=== PATIENT | female | born 1935 | race Caucasian/White ===

== ENCOUNTER 2017-09-16 14:51 | Emergency (ER) | payer MEDICARE, OTHER ==
[~2017-09-16] VITALS: Wt 57.9 kg
[~2017-09-16 14:51] MED LIST: AMLO-147 PO; ASPI81TA3 PO; AZEL6DRO2 BOTH EYES; BENA40TA41 PO; CARV3.1260 PO; CLON-379 PO; CLOP75TA27 PO; DICY10CA60 PO; DOCU-159 PO; EZET10TA3 PO; FENO48TA PO; GLIM1TAB2 PO; ISOS30TA5 PO; LEVO75TA5 PO; LORA0.5T PO; MECL12.5 PO; NITR0.4T32 SL; OMEP20CA16 PO; RANO500T2 PO; TIMO10DR7 BOTH EYES
[2017-09-16] MEDS ORDERED: NITROGLYCERIN 2% 1 GM OINT PKT TD STA (15:12)
--- NOTE | 2017-09-16 16:03 | RADRPT ---
PROCEDURE: XR Chest. CLINICAL INDICATION: Chest pain. TECHNIQUE: Single frontal view. COMPARISON: None. FINDINGS: There is a benign calcified granuloma in the left upper lobe. Calcified left mediastinal lymph nodes are noted. The lungs are otherwise clear. The heart size is normal. There is no pleural effusion. There is no pneumothorax. IMPRESSION: 1. Previous granulomatous disease. 2. Otherwise unremarkable chest radiograph. RPTAT: QQ .Taco Nagel MD, MD Date Time Electronically viewed and signed by .Taco Nagel MD, MD on 09/16/2017 16:03 .R/
[2017-09-16] MEDS ORDERED: ONDANSETRON 4 MG INJ IV PRN (17:00)
[2017-09-16] MEDS ORDERED: ACETAMINOPHEN 325 MG TAB PO PRN (17:00)
--- NOTE | 2017-09-16 17:24 | ERD ---
ER Documentation Chief Complaint Chief Complaint CHEST PAIN X 3 DAYS HPI This is a very pleasant 82-year-old female who presents to the emergency room complaining of chest pain. 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 Her blood pressure is also elevated. The patient describes pressure-like chest pain that is been intermittent for 3 days, nonexertional, nonproductive. She denies any pleuritic pain fevers or chills or migratory pain. The patient did note associated diaphoresis most recently. Only 2 out of 10 pain currently. ROS All systems reviewed and are negative except as per history of present illness. Medications Home Meds Active Scripts Aspirin (Aspirin) 81 Mg Chew, 81 MG PO DAILY for 30 Days, TAB Prov:PRANAV SHINLANA 12/27/15 Reported Medications Meclizine Hcl* (Meclizine Hcl*) 12.5 Mg Tablet, 12.5 MG PO Q8H Y for DIZZINESS, TAB 12/23/15 Azelastine Hcl* (Azelastine Hcl*) 0.05%-6 Ml Opht Drops, 1 DROP BOTH EYES BID, # 1 EA 12/23/15 Fenofibrate Nanocrystallized* (Tricor*) 48 Mg Tablet, 48 MG PO DAILY, TAB 12/23/15 Timolol Maleate* (Timoptic*) 0.5%- 5ml Opht, 1 DROP BOTH EYES DAILY, #1 EA 12/23/15 Dicyclomine Hcl* (Bentyl*) 10 Mg Capsule, 10 MG PO TID Y for PAIN AND/OR INFLAMMATION, CAP 12/23/15 Amlodipine Besylate* (Amlodipine Besylate*) 10 Mg Tablet, 10 MG PO DAILY, #30 TAB 12/23/15 Benazepril Hcl* (Benazepril Hcl*) 40 Mg Tablet, 40 MG PO DAILY, #30 TAB 12/23/15 Isosorbide Mononitrate* (Isosorbide Mononitrate*) 30 Mg Tab.er.24h, 30 MG PO DAILY, TAB 12/23/15 Ranolazine* (Ranexa*) 500 Mg Tab.sr.12h, 500 MG PO Q12, TAB 12/23/15 Omeprazole* (Omeprazole*) 20 Mg Capsule.dr, 20 MG PO DAILY, #30 CAP 2/11/16 Nitroglycerin* (Nitroglycerin* SL) 0.4 Mg Tab.subl, 0.4 MG SL Q5MIN Y for CHEST PAIN, BOTTLE 12/23/15 Lorazepam* (Lorazepam*) 0.5 Mg Tablet, 0.5 MG PO BID Y for ANXIETY, TAB 12/23/15 Levothyroxine Sodium* (Levothyroxine Sodium*) 75 Mcg Tablet, 75 MCG PO BEFORE BREAKFAST, #30 TAB 12/23/15 Ezetimibe* (Zetia*) 10 Mg Tablet, 10 MG PO DAILY, TAB 12/23/15 Docusate Sodium* (Docusate Sodium*) 100 Mg Capsule, 100 MG PO BID, #60 CAP 12/23/15 Clopidogrel Bisulfate (Clopidogrel) 75 Mg Tablet, 75 MG PO DAILY, #30 TAB 12/23/15 Carvedilol* (Carvedilol*) 3.125 Mg Tablet, 3.125 MG PO BID, #60 TAB 12/23/15 Clonidine Hcl* (Clonidine Hcl*) 0.1 Mg Tab, 0.1 MG PO QID Y for ELEVATED BLOOD PRESSURE, TAB 12/23/15 Glimepiride* (Glimepiride*) 1 Mg Tablet, 1 MG PO DAILY, TAB 12/23/15 Allergies Allergies: Coded Allergies: Penicillins (Verified Allergy, Severe, RASH, 01/05/12) celecoxib (Verified Allergy, Severe, RASH, 01/05/12) azithromycin (Verified Allergy, Unknown, 12/24/15) (ZITHROMICIN) benzalkonium chloride (Unverified Allergy, Unknown, 08/17/15) travoprost (Unverified Allergy, Unknown, 08/17/15) PMhx/Soc History of Surgery: Yes (cs,hysterectomy,spine) Anesthesia Reaction: No Hx Neurological Disorder: No Hx Respiratory Disorders: No Hx Cardiac Disorders: Yes ([id number]) Hx Psychiatric Problems: No Hx Alcohol Use: No Hx Substance Use: No Hx Tobacco Use: No Smoking Status: Never smoker FmHx Family History: coronary disease, No diabetes Physical Exam Vitals Vital Signs Date Time Temp Pulse Resp B/P Pulse Ox O2 Delivery O2 Flow Rate FiO2 09/16/17 16:00 54 15 138/61 100 Room Air 09/16/17 15:35 Nasal Cannula 2 09/16/17 14:56 98.0 59 18 182/78 98 Physical Exam General: Well developed, well nourished, no acute distress Head: Normocephalic, atraumatic. Eyes: Pupils equally reactive, EOM intact ENT: Moist mucous membranes Neck: Supple, no lymphadenopathy Respiratory: Lungs clear bilaterally, no distress Cardiovascular: RRR, no murmurs, rubs, or gallops Abdominal: Soft, non-tender, non-distended, no peritoneal signs : Deferred MSK: No edema, no unilateral swelling, 5/5 strength for no pulse deficits Neurologic: Alert and oriented, moving all extremities, normal speech, no focal weakness, no cerebellar signs Skin: No rash Psych: Normal mood Result Diagram: 09/16/17 1515 09/16/17 1515 Results 24 hrs Laboratory Tests Test 09/16/17 15:15 White Blood Count 4.810^3/ul Red Blood Count 4.4410^6/ul Hemoglobin 12.8g/dl Hematocrit 38.6% Mean Corpuscular Volume 86.9fl Mean Corpuscular Hemoglobin 28.8pg Mean Corpuscular Hemoglobin Concent 33.2g/dl Red Cell Distribution Width 12.0% Platelet Count 26666^3/UL Mean Platelet Volume 9.7fl Neutrophils % 54.8% Lymphocytes % 30.9% Monocytes % 12.2% Eosinophils % 1.3% Basophils % 0.6% Nucleated Red Blood Cells % 0.0/100WBC Neutrophils # 2.610^3/ul Lymphocytes # 1.510^3/ul Monocytes # 0.610^3/ul Eosinophils # 0.110^3/ul Basophils # 0.010^3/ul Nucleated Red Blood Cells # 0.010^3/ul Sodium Level 138mmol/L Potassium Level 4.5mmol/L Chloride Level 98mmol/L Carbon Dioxide Level 28mmol/L Anion Gap 17 Blood Urea Nitrogen 18mg/dl Creatinine 1.00mg/dl Glucose Level 117mg/dl Calcium Level 10.5mg/dl Troponin I < 0.012ng/ml Current Medications Medications (Trade) Dose Ordered Sig/Marlin Route PRN Reason Start Time Stop Time Status Last Admin Dose Admin Nitroglycerin (Nitroglycerin 2% Oint) 1 inch ONCE STAT TD 09/16/17 15:12 09/16/17 15:14 DC 09/16/17 15:19 Ondansetron HCl (Zofran Inj) 4 mg ER BRIDGE PRN IV NAUSEA AND/OR VOMITING 09/16/17 17:00 09/17/17 16:59 Acetaminophen (Tylenol Tab) 650 mg ER BRIDGE PRN PO MILD PAIN/FEVER 09/16/17 17:00 09/17/17 16:59 Procedures/MDM EKG, MONITORS, & DIAGNOSTIC IMAGING: EKG: I reviewed and interpreted a 12-lead EKG. Rhythm: Normal sinus rhythm Ectopy: None Intervals: No abnormalities ST segments: No elevations or depressions T waves: T-wave inversions in the inferior and lateral leads, inferior leads are new compared to old bilateral and anterior leads are old Repeat EKG: EKG: I reviewed and interpreted a 12-lead EKG. Rhythm: Normal sinus rhythm Ectopy: None Intervals: No abnormalities ST segments: No elevations or depressions T waves: T-wave inversions as documented above are unchanged Chest x-ray: I reviewed and interpreted a 1 view of the chest Mediastinum: No enlargement Cardiac silhouette: No cardiomegaly Airspace: Clear lung christy bilaterally without evidence of pneumothorax Bones: No evidence of fracture LAB INTERPRETATION: Negative troponin MEDICAL DECISION MAKING: The patient's history, physical exam and clinical presentation is concerning for possible cardiogenic etiology and acute coronary syndrome. Based on the patient's clinical exam and history and risk factors, I have a much lower clinical concern for pulmonary embolism, acute aortic dissection, pneumothorax, pneumonia, cardiac tamponade HEART Score: 5 MACE Rate: Upwards of 65% Shared Decision Making: We had a conversation regarding risk stratification, MACE rate, and the risks, benefits, alternatives of disposition planning options. Disposition planning: Strong recommendation for hospitalization given EKG changes ER COURSE: Patient was significantly hypertensive and improved with nitroglycerin. No indication for IV medications at this time. The patient took Plavix prior to arrival and has not tolerated aspirin in the past. Her chest pain is now 1 out of 10 and improving to 0 out of 10 during ER course. The patient requires inpatient hospitalization for further management of her chest pain rule out acute coronary syndrome. I kept the patient and/or family informed of laboratory and diagnostic imaging results throughout the emergency room course. DISPOSITION PLAN: Telemetry admission for management of chest pain to rule out acute coronary syndrome, serial enzymes, risk stratification and consideration of provocative testing CONSULTATION: Accepting care team and consultations: I discussed the current laboratory data, diagnostic imaging and emergency care provided. Admitting team: Dr. Meek Admitting team indication: Insurance directed Departure Diagnosis: Primary Impression: Chest pain Chest pain type: unspecified Qualified Code: R07.9 - Chest pain, unspecified type Additional Impression: Hypertensive emergency Condition: Stable THOMAS BAPTISTE MD Sep 16, 2017 17:24
--- NOTE | 2017-09-16 17:42 | HP ---
Date/Time of Note Date/Time of Note DATE: 09/16/17 TIME: 17:34 Assessment/Plan VTE Prophylaxis VTE Prophylaxis Intervention: LMWH, other Lines/Catheters IV Catheter Type (from Nrs): Peripheral IV Assessment/Plan Chief Complaint/Hosp Course 82 yo female with hypertension and anxiety who presents with BP elevation and anxiety - Ok for patient to be discharge from ED now [facility] follow up in clinic - Clinically this is not an ACS, patient without chest symptoms or angina to my history, troponin is negative - I advised her to take her medications as prescribed and to stop worryign about taking her ffingersticks or her blood pressure - Her BP is very labile according to her emotional state. I personally saw her BP go from 120/60 when calm at rest to 190/100 when she became tearful and stressed Problems: HPI/ROS Admit Date/Time Admit Date/Time Hx of Present Illness 82 yo female with h/o hypertension, anxiety/insomnia who presents with thompson positive ROS including headache, body aches, SOB, CP. Difficult to understand what the patient's primary reason for presentation to the hosptial today is, but she went to [facility] where BP was found to be 190s/70s so sent to ED. She describes persisetnt stress about her blood pressure. Has with her a meticulous log of daily BP going back years. Generally diasotlics are low from 40s to 60s and systolics range from 110s to 170s. She perseverates tremdneously on her BP and her blood sugar, though sugars generally 100-130 and A1C only 6.3. She feels like her BP elevation means she is "dying". I explained to her that BP is labile throughout the day and it is veyr natural for it to increase when you are nervous, in pain etc. She seem to take more BP medications when BP elevates incluiding clonidine and extra dose of benazapril. When i told her that she is a very heatlhy person and she doens't need to worry so much about her BP/sugars she was incerdibily releived, started crying, saying i was an "milena" and that she feels so "relieved." She denies any chest pain to me at this time. She udnerwent coronary angiography last years showing mild luminal irregularites but no obstructive diseae EKG at that time was notable for large precordial TWI which are still present on today's exam Note that per my history, chest pain is not the reason for her presentation today PMH/Family/Social Past Medical History Medical History: diabetes, hypertension Past Surgical History Past Surgical Hx: no surgical history Family History Significant Family History: no pertinent family hx Social History Alcohol Use: none Smoking Status: Never smoker Drug Use: none Exam/Review of Systems Vital Signs Vitals Vital Signs Date Time Temp Pulse Resp B/P Pulse Ox O2 Delivery O2 Flow Rate FiO2 09/16/17 16:00 54 15 138/61 100 Room Air 09/16/17 15:35 2 09/16/17 14:56 98.0 Exam Constitutional: alert, oriented, well developed Psych: nl mood/affect, no complaints Head: atraumatic, normocephalic Eyes: EOMI, PERRL, nl conjunctiva, nl lids, nl sclera ENMT: nl external ears & nose, nl lips & teeth, nl nasal mucosa & septum Neck: non-tender, supple Respiratory: clear to auscultation, normal air movement Cardiovascular: nl pulses, regular rate and rhythm Gastrointestinal: nl liver, spleen, non-tender, soft Musculoskeletal: nl extremities to inspection Extremities: normal pulses 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
--- NOTE | 2017-09-16 17:42 | HP ---
Date/Time of Note Date/Time of Note DATE: 09/16/17 TIME: 17:34 Assessment/Plan VTE Prophylaxis VTE Prophylaxis Intervention: LMWH, other Lines/Catheters IV Catheter Type (from Nrs): Peripheral IV Assessment/Plan Chief Complaint/Hosp Course 82 yo female with hypertension and anxiety who presents with BP elevation and anxiety - Ok for patient to be discharge from ED now [facility] follow up in clinic - Clinically this is not an ACS, patient without chest symptoms or angina to my history, troponin is negative - I advised her to take her medications as prescribed and to stop worryign about taking her ffingersticks or her blood pressure - Her BP is very labile according to her emotional state. I personally saw her BP go from 120/60 when calm at rest to 190/100 when she became tearful and stressed Problems: HPI/ROS Admit Date/Time Admit Date/Time Hx of Present Illness 82 yo female with h/o hypertension, anxiety/insomnia who presents with thompson positive ROS including headache, body aches, SOB, CP. Difficult to understand what the patient's primary reason for presentation to the hosptial today is, but she went to [facility] where BP was found to be 190s/70s so sent to ED. She describes persisetnt stress about her blood pressure. Has with her a meticulous log of daily BP going back years. Generally diasotlics are low from 40s to 60s and systolics range from 110s to 170s. She perseverates tremdneously on her BP and her blood sugar, though sugars generally 100-130 and A1C only 6.3. She feels like her BP elevation means she is "dying". I explained to her that BP is labile throughout the day and it is veyr natural for it to increase when you are nervous, in pain etc. She seem to take more BP medications when BP elevates incluiding clonidine and extra dose of benazapril. When i told her that she is a very heatlhy person and she doens't need to worry so much about her BP/sugars she was incerdibily releived, started crying, saying i was an "milena" and that she feels so "relieved." She denies any chest pain to me at this time. She udnerwent coronary angiography last years showing mild luminal irregularites but no obstructive diseae EKG at that time was notable for large precordial TWI which are still present on today's exam Note that per my history, chest pain is not the reason for her presentation today PMH/Family/Social Past Medical History Medical History: diabetes, hypertension Past Surgical History Past Surgical Hx: no surgical history Family History Significant Family History: no pertinent family hx Social History Alcohol Use: none Smoking Status: Never smoker Drug Use: none Exam/Review of Systems Vital Signs Vitals Vital Signs Date Time Temp Pulse Resp B/P Pulse Ox O2 Delivery O2 Flow Rate FiO2 09/16/17 16:00 54 15 138/61 100 Room Air 09/16/17 15:35 2 09/16/17 14:56 98.0 Exam Constitutional: alert, oriented, well developed Psych: nl mood/affect, no complaints Head: atraumatic, normocephalic Eyes: EOMI, PERRL, nl conjunctiva, nl lids, nl sclera ENMT: nl external ears & nose, nl lips & teeth, nl nasal mucosa & septum Neck: non-tender, supple Respiratory: clear to auscultation, normal air movement Cardiovascular: nl pulses, regular rate and rhythm Gastrointestinal: nl liver, spleen, non-tender, soft Musculoskeletal: nl extremities to inspection Extremities: normal pulses 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
[2017-09-16 18:55] VITALS: BP 127/61; PULSE 60; RESP 15; TEMP 98
== END 2017-09-16 19:01 | disposition home or self-care (01) ==
LOC: E/R 14:51
DX: I16.1 Hypertensive emergency (principal); I10 Essential (primary) hypertension; Z79.01 Long term (current) use of anticoagulants; Z79.82 Long term (current) use of aspirin
CPT/HCPCS: 36415; 71010; 80048; 84484; 85025; 93005

== ENCOUNTER 2018-02-19 23:44 | Inpatient (IN) | END 2018-02-22 19:30 | disposition home or self-care (01) | DRG 379 ==

== ENCOUNTER 2018-10-04 13:51 | Observation (INO) | END 2018-10-05 19:00 | disposition home or self-care (01) ==

== ENCOUNTER 2019-02-04 10:27 | Observation (INO) | payer MEDICARE, OTHER ==
[~2019-02-04] VITALS: Ht 157.5 cm; Wt 70.0 kg
[~2019-02-04 10:27] MED LIST changes: -AMLO-147 PO; -ASPI81TA3 PO; +ATOR20TA38 PO; -AZEL6DRO2 BOTH EYES; -BENA40TA41 PO; +BENA40TA56 PO; +BISO5TAB21 PO; -CARV3.1260 PO; +CHOL500010 PO; -DICY10CA60 PO; +DILT120C65 PO; -EZET10TA3 PO; -FENO48TA PO; +HYDR-3672 PO; -ISOS30TA5 PO; +LEVO5TAB PO; -LORA0.5T PO; -MECL12.5 PO; -OMEP20CA16 PO; +RANI150T5 PO; -RANO500T2 PO; +SIME80TA60 PO; -TIMO10DR7 BOTH EYES; +TML25OP5 BOTH EYES
[2019-02-04] MEDS ORDERED: NITROGLYCERIN 2% 1 GM OINT PKT TD STA (10:35)
[2019-02-04] MEDS ORDERED: NITROGLYCERIN (SL) 0.4 MG TAB SL PRN ×2 (11:00→18:30)
[2019-02-04] MEDS ORDERED: CLOP75TA19 PO (11:43)
[2019-02-04] MEDS ORDERED: LEVO75TA5 PO (11:44)
[2019-02-04] MEDS ORDERED: DILT240C79 PO (11:45)
[2019-02-04] MEDS ORDERED: BISO5TAB21 PO (11:46)
[2019-02-04] MEDS ORDERED: HYDR100T25 PO (11:47)
[2019-02-04] MEDS ORDERED: CLON1PAT2 TD (11:49)
[2019-02-04] MEDS ORDERED: DOCU-144 PO (11:50)
[2019-02-04] MEDS ORDERED: ATOR20TA38 PO (11:50)
[2019-02-04] MEDS ORDERED: CHOL200056 PO (11:51)
[2019-02-04] MEDS ORDERED: MCN2C47 VAGINAL (11:55)
[2019-02-04] MEDS ORDERED: LISI40TA3 PO (11:55)
[2019-02-04] MEDS ORDERED: SIME125T PO (11:55)
[2019-02-04] MEDS ORDERED: RANO500T2 PO (11:56)
[2019-02-04] MEDS ORDERED: OMEP40CA6 PO (11:57)
[2019-02-04] MEDS ORDERED: TRAZ-111 PO (11:57)
[2019-02-04] MEDS ORDERED: MICO100S4 VG (11:58)
[2019-02-04] MEDS ORDERED: GLIM1TAB2 PO (11:59)
[2019-02-04] MEDS ORDERED: CLOT30CR24 TOP (12:00)
[2019-02-04] MEDS ORDERED: ACETAMINOPHEN 325 MG TAB PO PRN ×2 (13:00→18:30)
[2019-02-04] MEDS ORDERED: ONDANSETRON 4 MG INJ IV PRN ×2 (13:00→18:30)
--- NOTE | 2019-02-04 13:43 | ERD ---
ER Documentation Chief Complaint Chief Complaint pressure like chest pain HPI Patient is an 83-year-old female with coronary disease, hypertension, and diabetes who presents with chest pain. The patient was brought in by ambulance. The chest pain started a few days ago. It left-sided. She was given aspirin and nitro by paramedics. The pain comes and goes. She tried her own nitroglycerin at home. Upon review of old medical records the patient has multiple visits to the ER with admissions. She does have a primary doctor Dr. 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 ROS All systems reviewed and are negative except as per history of present illness. Medications Home Meds Reported Medications Clotrimazole* (Clotrimazole* AF) 1% - 30 Gm Cream.gm., 1 APPLIC TOP BID, TUB 02/04/19 Glimepiride* (Glimepiride*) 1 Mg Tablet, 1 MG PO WITH BREAKFAST, TAB 02/04/19 Miconazole Nitrate (Miconazole 7) 100 Mg Supp.vag, 100 MG VG QHS, SUPP.VAG 02/04/19 Trazodone Hcl* (Trazodone Hcl*) 50 Mg Tablet, 50 MG PO QHS, #30 TAB 02/04/19 Omeprazole* (Omeprazole*) 40 Mg Capsule.dr, 40 MG PO DAILY, #30 CAP 02/04/19 Ranolazine* (Ranexa*) 500 Mg Tab.sr.12h, 500 MG PO DAILY, TAB 02/04/19 Lisinopril* (Lisinopril*) 40 Mg Tablet, 40 MG PO DAILY, #30 TAB 02/04/19 Miconazole Nitrate* (Miconazole*) 2% - 45 Gm Cr, 1 APPFUL VAGINAL HS, #1 TUB 02/04/19 Simethicone (Gas Relief) 125 Mg Tab.chew, 250 MG PO AFTER MEALS, TAB.CHEW 02/04/19 Cholecalciferol (Vitamin D3) (Vitamin D-3) 2,000 Unit Tablet, 2000 UNIT PO DAILY, TAB 02/04/19 Atorvastatin Calcium* (Atorvastatin Calcium*) 20 Mg Tablet, 20 MG PO QHS, #30 TAB 02/04/19 Docusate Sodium* (Colace*) 100 Mg Capsule, 100 MG PO BID, #60 CAP 02/04/19 Clonidine Patch (CLONIDINE PATCH) Unknown Strength Patch, 1 PATCH TD Q7D, #4 PATCH.WK 0.1MG/24HR 02/04/19 Hydralazine Hcl* (Hydralazine Hcl*) 100 Mg Tablet, 100 MG PO Q8, #90 TAB 02/04/19 Bisoprolol Fumarate* (Bisoprolol Fumarate*) 5 Mg Tablet, 5 MG PO BID, TAB 02/04/19 Diltiazem Hcl* (Cardizem CD*) 240 Mg Cap.sr.24h, 240 MG PO DAILY, #30 CAP 02/04/19 Levothyroxine Sodium* (Levothyroxine Sodium*) 75 Mcg Tablet, 75 MCG PO BEFORE BREAKFAST, #30 TAB 02/04/19 Clopidogrel Bisulfate* (Clopidogrel Bisulfate*) 75 Mg Tablet, 75 MG PO DAILY, #30 TAB 02/04/19 Discontinued Reported Medications Timolol Maleate* (Timoptic*) 0.25%-5ml Opht, 1 DROP BOTH EYES BID, #1 EA 10/04/18 Simethicone* (Mylicon*) 80 Mg Tab, 80 MG PO DAILY PRN for DISTENSION/GAS/BLOATING, TAB 10/04/18 Levocetirizine Dihydrochloride (LEVOCETIRIZINE DIHYDROCHLORIDE) 5 Mg Tablet, 5 MG PO DAILY, #30 TAB 10/04/18 Cholecalciferol (Vitamin D3) 5,000 Unit Tablet, 5000 UNIT PO DAILY, TAB 10/04/18 Atorvastatin Calcium* (Atorvastatin Calcium*) 20 Mg Tablet, 20 MG PO QHS, #30 TAB 10/04/18 Glimepiride* (Glimepiride*) 1 Mg Tablet, 1 MG PO WITH BREAKFAST, TAB 10/04/18 Levothyroxine Sodium* (Levothyroxine Sodium*) 75 Mcg Tablet, 75 MCG PO BEFORE BREAKFAST, #30 TAB 10/04/18 Clopidogrel Bisulfate (Clopidogrel) 75 Mg Tablet, 75 MG PO DAILY, #30 TAB 10/04/18 Docusate Sodium* (Docusate Sodium*) 100 Mg Capsule, 100 MG PO BID, #60 CAP 10/04/18 Ranitidine Hcl* (Ranitidine Hcl*) 150 Mg Tablet, 150 MG PO HS, #30 TAB 10/04/18 Bisoprolol Fumarate* (Bisoprolol Fumarate*) 5 Mg Tablet, 5 MG PO BID, TAB 10/04/18 Nitroglycerin* (Nitroglycerin* SL) 0.4 Mg Tab.subl, 0.4 MG SL Q5MIN PRN for CHEST PAIN, BOTTLE 10/04/18 Clonidine Hcl* (Clonidine Hcl*) 0.1 Mg Tab, 0.1 MG PO DAILY PRN for ELEVATED BLOOD PRESSURE, TAB 10/04/18 Hydralazine Hcl* (Hydralazine Hcl*) 50 Mg Tab, 50 MG PO Q6H, #60 TAB 10/04/18 Benazepril Hcl* (Benazepril Hcl*) 40 Mg Tablet, 40 MG PO DAILY, #30 TAB 10/04/18 Diltiazem Hcl* (Taztia XT*) 120 Mg Capsule.sa, 120 MG PO DAILY, #30 CAP 10/04/18 Allergies Allergies: Coded Allergies: Penicillins (Verified Allergy, Severe, RASH, 02/04/19) celecoxib (Verified Allergy, Severe, RASH, 02/04/19) azithromycin (Verified Allergy, Unknown, 02/04/19) (ZITHROMICIN) benzalkonium chloride (Unverified Allergy, Unknown, 02/04/19) travoprost (Unverified Allergy, Unknown, 02/04/19) PMhx/Soc History of Surgery: Yes (hysterectomy, C section, back Sx) Anesthesia Reaction: No Hx Neurological Disorder: No (headaches) Hx Respiratory Disorders: No Hx Cardiac Disorders: Yes (HTN, PR 1990) Hx Psychiatric Problems: No Hx Miscellaneous Medical Probl: No Hx Alcohol Use: No Hx Substance Use: No Hx Tobacco Use: No FmHx Family History: No coronary disease Physical Exam Vitals Vital Signs Date Temp Pulse Resp B/P (MAP) Pulse Ox O2 O2 Flow FiO2 Time Delivery Rate 02/04/19 59 155/65 11:09 (95) 02/04/19 Nasal 2 10:40 Cannula 02/04/19 98.0 52 12 195/63 18 10:30 (107) Physical Exam Const: No acute distress Head: Atraumatic Eyes: Normal Conjunctiva ENT: Normal External Ears, Nose and Mouth. Neck: Full range of motion. No meningismus. Resp: Clear to auscultation bilaterally Cardio: Regular rate and rhythm, no murmurs Abd: Soft, non tender, non distended. Normal bowel sounds Skin: No petechiae or rashes Back: No midline or flank tenderness Ext: No cyanosis, or edema Neur: Awake and alert Psych: Normal Mood and Affect Result Diagram: 02/04/19 1054 02/04/19 1054 Results 24 hrs Laboratory Tests Test 02/04/19 10:54 White Blood Count 4.5 10^3/ul Red Blood Count 3.67 10^6/ul Hemoglobin 11.0 g/dl Hematocrit 33.8 % Mean Corpuscular Volume 92.1 fl Mean Corpuscular Hemoglobin 30.0 pg Mean Corpuscular Hemoglobin Concent 32.5 g/dl Red Cell Distribution Width 13.4 % Platelet Count 205 10^3/UL Mean Platelet Volume 9.6 fl Immature Granulocytes % 0.400 % Neutrophils % 62.8 % Lymphocytes % 21.8 % Monocytes % 13.0 % Eosinophils % 1.6 % Basophils % 0.4 % Nucleated Red Blood Cells % 0.0 /100WBC Immature Granulocytes # 0.020 10^3/ul Neutrophils # 2.8 10^3/ul Lymphocytes # 1.0 10^3/ul Monocytes # 0.6 10^3/ul Eosinophils # 0.1 10^3/ul Basophils # 0.0 10^3/ul Nucleated Red Blood Cells # 0.0 10^3/ul Sodium Level 140 mmol/L Potassium Level 4.0 mmol/L Chloride Level 100 mmol/L Carbon Dioxide Level 29 mmol/L Anion Gap 11 Blood Urea Nitrogen 16 mg/dl Creatinine 0.70 mg/dl Est Glomerular Filtrat Rate mL/min mL/min Glucose Level 92 mg/dl Calcium Level 10.0 mg/dl Troponin I < 0.012 ng/ml Current Medications Medications Dose Sig/Marlin Start Time Status Last (Trade) Ordered Route PRN Stop Time Admin Dose Reason Admin 1 inch ONCE STAT 02/04/19 DC 02/04/19 Nitroglycerin TD 10:35 10:48 02/04/19 10:36 (Nitroglyceri n 2% Oint) 1 tab Q5M UP TO 3 02/04/19 02/04/19 Nitroglycerin DOSES PRN 11:00 10:48 SL .CHEST (Nitroglyceri PAIN n (Sl Tab) 0.4 Mg) Ondansetron 4 mg ER BRIDGE 02/04/19 HCl (Zofran PRN IV 13:00 Inj) NAUSEA/VOMITI 02/05/19 12:59 NG 650 mg ER BRIDGE 02/04/19 Acetaminophen PRN PO 13:00 (Tylenol .MILD PAIN 02/05/19 12:59 Tab) 1-3 OR TEMP Procedures/MDM EKG #1 read by me: Rate/Rhythm: Regular rate and rhythm at a normal rate Intervals: Normal Impression: Flipped T waves in the lateral leads concerning for ischemia EKG #2 read by me: Rate/Rhythm: Regular rate and rhythm at a normal rate Intervals: Normal Impression: Flipped T waves in the lateral leads concerning for ischemia Chest x-ray read by radiology. Patient is an 83-year-old female with multiple cardiac risk factors who presents with chest pain. I am concerned for potential acute coronary syndrome and the patient does have an abnormal EKG. Initial troponin is negative. The patient will be admitted to the panel team. The patient received aspirin and nitroglycerin. I doubt pneumonia, pneumothorax, pulmonary embolism, or aortic dissection. Departure Diagnosis: Primary Impression: Chest pain Chest pain type: unspecified Qualified Codes: R07.9 - Chest pain, unspecified Additional Impression: Anemia Anemia type: unspecified type Qualified Codes: D64.9 - Anemia, unspecified Condition: MYRIAM [place] MD Feb 04, 2019 13:43
[2019-02-04] MEDS ORDERED: ACETAMINOPHEN 325 MG TAB PO ONE (14:00)
[2019-02-04 14:40] VITALS: Ht 157.5 cm; Wt 70.0 kg
--- NOTE | 2019-02-04 16:59 | CONS ---
Assessment/Plan Assessment/Plan Hospital Course (Demo Recall) Chest pain Minimal epicardial coronary artery disease cardiac catheterization December 2015 Preserved left ventricular ejection fraction echocardiogram December 2015 Hypertension Diabetes -Patient with left-sided chest discomfort which is nonexertional has been off and on for years. She did undergo cardiac workup in 2016 with cardiac catheterization with minimal coronary artery disease. Symptoms have been controlled with antihypertensives and Ranexa. Patient states her Ranexa was recently stopped and her symptoms have worsened. I would restart her Ranexa. Check serial cardiac enzymes, echocardiogram. Consultation Date/Type/Reason Admit Date/Time Type of Consult Cardiology Reason for Consultation Chest pain Date/Time of Note DATE: 02/04/19 TIME: 16:55 Hx of Present Illness This is an 83-year-old female past medical history of hypertension, minimal coronary artery disease cardiac catheterization December 2015 who presents with left-sided chest pain. Patient has a hard time describing qualities of pain but she tells me is on the left side. It comes and goes throughout the day. Can happen while sitting can happen while ambulating. Exertion does not worsen or improve symptoms. Usually last from seconds to minutes. Symptoms have worsened since she recently stopped her Ranexa. Denies any dizziness or lightheadedness at the current time but does at times with standing up. She denies any shortness of breath currently. 12 point review of systems was performed with all pertinent positives and negatives mentioned above and all else is negative Past Medical History Medical History: diabetes, hypertension, hypothyroid Home Meds Reported Medications Clotrimazole* (Clotrimazole* AF) 1% - 30 Gm Cream.gm., 1 APPLIC TOP BID, TUB 02/04/19 Glimepiride* (Glimepiride*) 1 Mg Tablet, 1 MG PO WITH BREAKFAST, TAB 02/04/19 Miconazole Nitrate (Miconazole 7) 100 Mg Supp.vag, 100 MG VG QHS, SUPP.VAG 02/04/19 Trazodone Hcl* (Trazodone Hcl*) 50 Mg Tablet, 50 MG PO QHS, #30 TAB 02/04/19 Omeprazole* (Omeprazole*) 40 Mg Capsule.dr, 40 MG PO DAILY, #30 CAP 02/04/19 Ranolazine* (Ranexa*) 500 Mg Tab.sr.12h, 500 MG PO DAILY, TAB 02/04/19 Lisinopril* (Lisinopril*) 40 Mg Tablet, 40 MG PO DAILY, #30 TAB 02/04/19 Miconazole Nitrate* (Miconazole*) 2% - 45 Gm Cr, 1 APPFUL VAGINAL HS, #1 TUB 02/04/19 Simethicone (Gas Relief) 125 Mg Tab.chew, 250 MG PO AFTER MEALS, TAB.CHEW 02/04/19 Cholecalciferol (Vitamin D3) (Vitamin D-3) 2,000 Unit Tablet, 2000 UNIT PO DAILY, TAB 02/04/19 Atorvastatin Calcium* (Atorvastatin Calcium*) 20 Mg Tablet, 20 MG PO QHS, #30 TAB 02/04/19 Docusate Sodium* (Colace*) 100 Mg Capsule, 100 MG PO BID, #60 CAP 02/04/19 Clonidine Patch (CLONIDINE PATCH) Unknown Strength Patch, 1 PATCH TD Q7D, #4 PATCH.WK 0.1MG/24HR 02/04/19 Hydralazine Hcl* (Hydralazine Hcl*) 100 Mg Tablet, 100 MG PO Q8, #90 TAB 02/04/19 Bisoprolol Fumarate* (Bisoprolol Fumarate*) 5 Mg Tablet, 5 MG PO BID, TAB 02/04/19 Diltiazem Hcl* (Cardizem CD*) 240 Mg Cap.sr.24h, 240 MG PO DAILY, #30 CAP 02/04/19 Levothyroxine Sodium* (Levothyroxine Sodium*) 75 Mcg Tablet, 75 MCG PO BEFORE BREAKFAST, #30 TAB 02/04/19 Clopidogrel Bisulfate* (Clopidogrel Bisulfate*) 75 Mg Tablet, 75 MG PO DAILY, #30 TAB 02/04/19 Discontinued Reported Medications Timolol Maleate* (Timoptic*) 0.25%-5ml Opht, 1 DROP BOTH EYES BID, #1 EA 10/04/18 Simethicone* (Mylicon*) 80 Mg Tab, 80 MG PO DAILY PRN for DISTENSION/GAS/BLOATING, TAB 10/04/18 Levocetirizine Dihydrochloride (LEVOCETIRIZINE DIHYDROCHLORIDE) 5 Mg Tablet, 5 MG PO DAILY, #30 TAB 10/04/18 Cholecalciferol (Vitamin D3) 5,000 Unit Tablet, 5000 UNIT PO DAILY, TAB 10/04/18 Atorvastatin Calcium* (Atorvastatin Calcium*) 20 Mg Tablet, 20 MG PO QHS, #30 TAB 10/04/18 Glimepiride* (Glimepiride*) 1 Mg Tablet, 1 MG PO WITH BREAKFAST, TAB 10/04/18 Levothyroxine Sodium* (Levothyroxine Sodium*) 75 Mcg Tablet, 75 MCG PO BEFORE BREAKFAST, #30 TAB 10/04/18 Clopidogrel Bisulfate (Clopidogrel) 75 Mg Tablet, 75 MG PO DAILY, #30 TAB 10/04/18 Docusate Sodium* (Docusate Sodium*) 100 Mg Capsule, 100 MG PO BID, #60 CAP 10/04/18 Ranitidine Hcl* (Ranitidine Hcl*) 150 Mg Tablet, 150 MG PO HS, #30 TAB 10/04/18 Bisoprolol Fumarate* (Bisoprolol Fumarate*) 5 Mg Tablet, 5 MG PO BID, TAB 10/04/18 Nitroglycerin* (Nitroglycerin* SL) 0.4 Mg Tab.subl, 0.4 MG SL Q5MIN PRN for CHES T PAIN, BOTTLE 10/04/18 Clonidine Hcl* (Clonidine Hcl*) 0.1 Mg Tab, 0.1 MG PO DAILY PRN for ELEVATED BLOOD PRESSURE, TAB 10/04/18 Hydralazine Hcl* (Hydralazine Hcl*) 50 Mg Tab, 50 MG PO Q6H, #60 TAB 10/04/18 Benazepril Hcl* (Benazepril Hcl*) 40 Mg Tablet, 40 MG PO DAILY, #30 TAB 10/04/18 Diltiazem Hcl* (Taztia XT*) 120 Mg Capsule.sa, 120 MG PO DAILY, #30 CAP 10/04/18 Medications Current Medications Nitroglycerin (Nitroglycerin (Sl Tab) 0.4 Mg) 1 tab Q5M UP TO 3 DOSES PRN SL .CHEST PAIN Last administered on 02/04/19at 10:48; Admin Dose 1 TAB; Start 02/04/19 at 11:00 Ondansetron HCl (Zofran Inj) 4 mg ER BRIDGE PRN IV NAUSEA/VOMITING; Start 02/04/19 at 13:00; Stop 02/05/19 at 12:59 Acetaminophen (Tylenol Tab) 650 mg ER BRIDGE PRN PO .MILD PAIN 1-3 OR TEMP; Start 02/04/19 at 13:00; Stop 02/05/19 at 12:59 Allergies: Coded Allergies: Penicillins (Verified Allergy, Severe, RASH, 02/04/19) celecoxib (Verified Allergy, Severe, RASH, 02/04/19) azithromycin (Verified Allergy, Unknown, 02/04/19) (ZITHROMICIN) benzalkonium chloride (Unverified Allergy, Unknown, 02/04/19) travoprost (Unverified Allergy, Unknown, 02/04/19) Past Surgical History Past Surgical Hx: endoscopy Family History Significant Family History: no pertinent family hx Social History Smoking Status: Never smoker Other Social History , Facility Exam/Review of Systems Vital Signs Vitals Vital Signs Date Temp Pulse Resp B/P (MAP) Pulse Ox O2 O2 Flow FiO2 Time Delivery Rate 02/04/19 58 16 137/59 100 Nasal 15:30 (85) Cannula 02/04/19 2 10:40 02/04/19 98.0 10:30 Exam Constitutional: alert, oriented (No apparent distress) Head: normocephalic Respiratory: clear to auscultation, normal air movement Cardiovascular: regular rate and rhythm (S1-S2 heard) Gastrointestinal: soft, non-tender, bowel sounds Extremities: other (No significant edema) Labs Result Diagram: 02/04/19 1054 02/04/19 1054 Results 24hrs Laboratory Tests Test 02/04/19 10:54 White Blood Count 4.5 L Red Blood Count 3.67 L Hemoglobin 11.0 L Hematocrit 33.8 L Mean Corpuscular Volume 92.1 Mean Corpuscular Hemoglobin 30.0 Mean Corpuscular Hemoglobin Concent 32.5 Red Cell Distribution Width 13.4 Platelet Count 205 Mean Platelet Volume 9.6 Immature Granulocytes % 0.400 Neutrophils % 62.8 Lymphocytes % 21.8 Monocytes % 13.0 H Eosinophils % 1.6 Basophils % 0.4 Nucleated Red Blood Cells % 0.0 Immature Granulocytes # 0.020 Neutrophils # 2.8 Lymphocytes # 1.0 Monocytes # 0.6 Eosinophils # 0.1 Basophils # 0.0 Nucleated Red Blood Cells # 0.0 Sodium Level 140 Potassium Level 4.0 Chloride Level 100 Carbon Dioxide Level 29 Anion Gap 11 Blood Urea Nitrogen 16 Creatinine 0.70 Est Glomerular Filtrat Rate mL/min Glucose Level 92 Calcium Level 10.0 Troponin I < 0.012 Imaging Imaging ECG sinus bradycardia, QRS 86 ms, left ventricular hypertrophy, nonspecific T wave abnormalities Medications Medications Current Medications Nitroglycerin (Nitroglycerin (Sl Tab) 0.4 Mg) 1 tab Q5M UP TO 3 DOSES PRN SL .CHEST PAIN Last administered on 02/04/19at 10:48; Admin Dose 1 TAB; Start 02/04/19 at 11:00 Ondansetron HCl (Zofran Inj) 4 mg ER BRIDGE PRN IV NAUSEA/VOMITING; Start 02/04/19 at 13:00; Stop 02/05/19 at 12:59 Acetaminophen (Tylenol Tab) 650 mg ER BRIDGE PRN PO .MILD PAIN 1-3 OR TEMP; Start 02/04/19 at 13:00; Stop 02/05/19 at 12:59 Sachin Rosario DO Feb 04, 2019 16:59
[2019-02-04] MEDS ORDERED: RANOLAZINE (SR) 500 MG TAB PO SCH (17:00)
--- NOTE | 2019-02-04 17:16 | RADRPT ---
Echocardiogram Report Patient Name: KRISS BRUCEPatient ID: [id number] : [id number] (83y 11m)Study Date: 02/04/2019 4:36:43 PM Gender: FAccession #: [id number] Tech: CO Location: Ref.Physician: SACHIN ROSARIO Height(Cm): BSA: Weight(Kg): Quality: GoodAccount #: Procedures: Echocardiographic Report: Transthoracic echocardiogram with complete 2D, M-Mode, and doppler examination. Indications: Chest Pain, LVH. Measurements: 2D/M Mode Doppler Measurement Value Normal Range Measurement Value Normal Range LVIDd 2D 4.8 [ 3.8 - 5.2 ] cm XU Vmax 1.5 [ 2.0 - 4.0 ] cm2 LVIDs 2D 2.6 [ 2.2 - 3.5 ] cm XU VTI 1.6 [ 2.0 - 4.0 ] cm2 LVPWd 2D 1.2 [ 0.6 - 0.9 ] cm AV Mean Maxwell 1.5 [ 70.0 - 90.0 ] cm/sec IVSd 2D 1.0 [ 0.6 - 0.9 ] cm AV Mean PG 12.0 [ 2.0 - 4.0 ] mmHg IVS/LVPW 2D 0.8 ratio AV Peak Maxwell 2.7 [ 100.0 - 170.0 ] cm/sec AoR Diam 2D 2.3 [ 2.3 - 3.1 ] cm AV Peak PG 29.0 [ 2.0 - 9.0 ] mmHg LA/Ao 2D 2 ratio AV VTI 62.5 cm LA Dimen 2D 3.7 [ 2.7 - 3.8 ] cm LVOT Peak Maxwell 1.4 [ 70.0 - 110.0 ] cm/sec LVOT Area 2.8 cm2 LVOT Peak PG 8.0 [ 2.0 - 6.0 ] mmHg MV E Peak Maxwell 1.1 [ 60.0 - 130.0 ] cm/sec MV A Peak Maxwell 0.9 [ 100.0 - 120.0 ] cm/sec MV E/A 1.2 [ 0.8 - 1.5 ] ratio MV Decel Time 257 [ 104 - 258 ] msec Lat E` Maxwell 0.1 [ 10.0 - 15.0 ] cm/sec Med E` Maxwell 0.0 cm/sec MV E/A 1.2 [ 0.8 - 1.5 ] ratio Findings: Left Ventricle: Normal left ventricular systolic function. Normal left ventricular cavity size. Mild concentric left ventricular hypertrophy. Ejection fraction is visually estimated at 65 %. Abnormal Diastolic Function. Right Ventricle: Normal right ventricular size. Normal right ventricular systolic function. Left Atrium: The left atrium is normal in size. Right Atrium: The right atrium is normal in size. Mitral Valve: Mitral valve leaflets appear mildly thickened. Mild mitral annular calcification. Mild mitral valve regurgitation. Aortic Valve: Mild aortic stenosis. Mean PG 12.00 mmHg. Aortic cusps appear mildly calcified. Trace aortic valve regurgitation. Tricuspid Valve: Normal appearance and function of the tricuspid valve with trace physiologic regurgitation. Pulmonic Valve: Normal pulmonic valve appearance. There is trace pulmonic regurgitation. Pericardium: Normal pericardium with no significant pericardial effusion. Aorta: Normal aortic root. IVC: Normal size and normal respiratory collapse consistent with normal right atrial pressure. Conclusions: Normal left ventricular systolic function. Normal left ventricular cavity size. Mild concentric left ventricular hypertrophy. Ejection fraction is visually estimated at 65 %. Abnormal Diastolic Function. Normal right ventricular size. Normal right ventricular systolic function. The left atrium is normal in size. The right atrium is normal in size. Mild mitral valve regurgitation. Mild aortic stenosis. Trace aortic valve regurgitation. Normal pericardium with no significant pericardial effusion. Electronically Signed By: Sachin Rosario 2019-02-04 17:16:43 PDT
[2019-02-04] MEDS: RANOLAZINE (SR) 500 MG TAB PO SCH (18:19)
[2019-02-04] MEDS ORDERED: LORAZEPAM 0.5 MG TAB PO PRN (18:30)
--- NOTE | 2019-02-04 18:41 | HP ---
Date/Time of Note Date/Time of Note DATE: 02/04/19 TIME OF EVALUATION: 14:13 Assessment/Plan VTE Prophylaxis Pharmacological prophylaxis: heparin Lines/Catheters IV [facility] Saline Lock Assessment/Plan Hospital Course 83 yo F with recurrent L sided CP since her ranexa was stopped admitted and managed as follows : 1. CP r/o ACS 2. coronary disease status post stent placement in the past 3. hypertension 4. dhx-pxgsbzx-lwqcodybk diabetes 5. dyslipidemia 6. hypothyroidism, 7. GI bleed secondary to hemorrhoids and diverticulosis 8. Chronic anxiety PLAN: Telemetry admission, trend cardiac enzymes, 2d echo if none recently and cardiology consult oxygen and nitroglycerin therapy as needed. Daily aspirin if no allergy or bleeding risk. Get lipid profile, magnesium and TSH levels in am. resume home meds include ranexa for now titrate and adjust meds as indicated Further interventions per course Result Diagram: 02/04/19 1054 02/04/19 1054 Results 24hrs Laboratory Tests Test 02/04/19 10:54 02/04/19 17:08 White Blood Count 4.5 L Red Blood Count 3.67 L Hemoglobin 11.0 L Hematocrit 33.8 L Mean Corpuscular Volume 92.1 Mean Corpuscular Hemoglobin 30.0 Mean Corpuscular Hemoglobin Concent 32.5 Red Cell Distribution Width 13.4 Platelet Count 205 Mean Platelet Volume 9.6 Immature Granulocytes % 0.400 Neutrophils % 62.8 Lymphocytes % 21.8 Monocytes % 13.0 H Eosinophils % 1.6 Basophils % 0.4 Nucleated Red Blood Cells % 0.0 Immature Granulocytes # 0.020 Neutrophils # 2.8 Lymphocytes # 1.0 Monocytes # 0.6 Eosinophils # 0.1 Basophils # 0.0 Nucleated Red Blood Cells # 0.0 Sodium Level 140 Potassium Level 4.0 Chloride Level 100 Carbon Dioxide Level 29 Anion Gap 11 Blood Urea Nitrogen 16 Creatinine 0.70 Est Glomerular Filtrat Rate mL/min Glucose Level 92 Calcium Level 10.0 Troponin I < 0.012 < 0.012 Creatine Kinase 46 Creatine Kinase Index 1.3 Creatinine Kinase MB (Mass) 0.59 HPI/ROS Admit Date/Time Admit Date/Time Hx of Present Illness Patient is an 83-year-old female with a history of coronary disease status post stent placement in the past, hypertension, suq-btqzdah-erqzdrljj diabetes, dyslipidemia, hypothyroidism, GI bleed secondary to hemorrhoids and diverticulosis, anxiety. Patient presents with chest pain in the left chest and shoulder for the past 4 days. Pain is intermittent and is similar to pain she has had in the past. She states that her PCP just stopped her Ranexa because he was concerned it was interacting with her plavix. She cannot remember her last stress test. Her PCP is Dr Peterson. She denied SOB, fever, cough, abd pain, nausea or vomiting. Denies passing out episodes or extremity weakness. ROS 12 point review if systems was done and pertinent findings are as noted. PMH/Family/Social Past Medical History * coronary disease status post stent placement in the past, * angina * hypertension * jva-etyiaec-qoqtljiwn diabetes, * dyslipidemia, * hypothyroidism * GI bleed secondary to hemorrhoids and diverticulosis * anxiety . Medications Current Medications Nitroglycerin (Nitroglycerin (Sl Tab) 0.4 Mg) 1 tab Q5M UP TO 3 DOSES PRN SL .CHEST PAIN Last administered on 02/04/19at 10:48; Admin Dose 1 TAB; Start 02/04/19 at 11:00 Ondansetron HCl (Zofran Inj) 4 mg ER BRIDGE PRN IV NAUSEA/VOMITING; Start 02/04/19 at 13:00; Stop 02/05/19 at 12:59 Acetaminophen (Tylenol Tab) 650 mg ER BRIDGE PRN PO .MILD PAIN 1-3 OR TEMP; Start 02/04/19 at 13:00; Stop 02/05/19 at 12:59 Ranolazine (Ranexa) 500 mg DAILY PO ; Start 02/04/19 at 18:30 Coded Allergies: Penicillins (Verified Allergy, Severe, RASH, 02/04/19) celecoxib (Verified Allergy, Severe, RASH, 02/04/19) azithromycin (Verified Allergy, Unknown, 02/04/19) (ZITHROMICIN) benzalkonium chloride (Unverified Allergy, Unknown, 02/04/19) travoprost (Unverified Allergy, Unknown, 02/04/19) Past Surgical History Past Surgical Hx: endoscopy Family History Significant Family History: no pertinent family hx Social History Alcohol Use: none Smoking Status: Never smoker Drug Use: none Exam/Review of Systems Vital Signs Vitals Vital Signs Date Temp Pulse Resp B/P (MAP) Pulse Ox O2 O2 Flow FiO2 Time Delivery Rate 02/04/19 58 17 138/58 100 Nasal 17:30 (84) Cannula 02/04/19 2 10:40 02/04/19 98.0 10:30 Exam Exam General: A&O x3, answering questions appropriately, elderly, anxious HEENT: NC/ AT. PERRL. EOM intact Neck: supple CVS: S1, S2, RRR. no murmurs. no pain on chest wall palpation Lungs: CTA b/l. no wheezing or rhonchi Abd: soft, nontender, +BS Ext: moving all extremities skin: no rashes Additional Comments PROCEDURE: XR Chest. CLINICAL INDICATION: chest pain TECHNIQUE: Single frontal view of the chest was obtained COMPARISON: CR CHEST 12/23/2015 FINDINGS: The heart is normal in size. There is a small calcified lymph node in the AP window versus a small calcified granuloma. There is also a tiny left upper lobe calcified granuloma, unchanged. There is no pleural effusion or pneumothorax. RPTAT: AA IMPRESSION: Small left upper lobe calcified granuloma versus small calcified lymph node in the AP window. Tiny left upper lobe calcified granuloma. .Matt Cordero MD, MD Date Time Electronically viewed and signed by .Matt Cordero MD, on 02/04/2019 10:51 .S/ CC: MYRIAM HELMS MD [id number] I reviewed EKG Rate: Within normal limits Rhythm: sinus Note: No ST elevation or depressions noted concerning for acute ischemic event. ZEBOLATITO M. Feb 04, 2019 18:24
[2019-02-04] MEDS: INSULIN GLARGINE [LANTus] (100 UNITS/ML) SYG SC SCH (20:24)
[2019-02-04] MEDS: INSULIN ASPART [NOVOLOG] 3 ML PEN SC SCH (21:00)
[2019-02-04] MEDS: BISOPROLOL 5 MG TAB PO SCH (21:00)
[2019-02-04 21:05] VITALS: PULSE 69
[2019-02-04 21:20] VITALS: BP 171/74; PULSE 64; RESP 19
[2019-02-04] MEDS: DOCUSATE SODIUM 100 MG CAP PO SCH (21:36)
[2019-02-04] MEDS: ATORVASTATIN 20 MG TAB PO SCH (21:36)
[2019-02-04] MEDS: traZODone 50 MG TAB PO SCH (21:38)
[2019-02-04] MEDS: HEPARIN 5,000 UNIT/1 ML VIAL SC SCH (21:46)
[2019-02-05] VITALS (12 sets, daily range): BP systolic 102–185; BP diastolic 59–84; PULSE 49–70; RESP 18–20
[2019-02-05] MEDS: LEVOTHYROXINE 75 MCG TAB PO SCH (06:13)
[2019-02-05] MEDS: PANTOPRAZOLE (EC) 40 MG TAB PO SCH (06:13)
[2019-02-05] MEDS: INSULIN ASPART [NOVOLOG] 3 ML PEN SC SCH ×7 (07:43→20:39)
[2019-02-05] MEDS: CLOPIDOGREL 75 MG TAB PO SCH (08:06)
[2019-02-05] MEDS: RANOLAZINE (SR) 500 MG TAB PO SCH (08:07)
[2019-02-05] MEDS: CHOLECALCIFEROL 2,000 UNIT CAP PO SCH (08:07)
[2019-02-05] MEDS: DOCUSATE SODIUM 100 MG CAP PO SCH ×2 (08:07→20:38)
[2019-02-05] MEDS: HEPARIN 5,000 UNIT/1 ML VIAL SC SCH ×2 (08:24→20:45)
[2019-02-05] MEDS ORDERED: LISINOPRIL 20 MG TAB PO SCH (09:00)
[2019-02-05] MEDS ORDERED: DILTIAZEM (CD) 240 MG CAP PO SCH (09:00)
[2019-02-05] MEDS: BISOPROLOL 5 MG TAB PO SCH ×2 (10:26→20:38)
--- NOTE | 2019-02-05 13:54 | CONS ---
Assessment/Plan Assessment/Plan Hospital Course (Demo Recall) Chest pain-resolved Minimal epicardial coronary artery disease cardiac catheterization December 2015 Preserved left ventricular ejection fraction Hypertension, improved Diabetes -Chest pain is since resolved since restarting Ranexa and blood pressure control. Serial cardiac enzymes remain negative -Review of vitals, patient with heart rates in the 50s-60s, on both calcium channel finesse and beta-finesse. Would DC Cardizem at the current time -Adjust lisinopril to twice daily dosing -Blood pressure trend remains stable and tolerating current medications, DC planning Consultation Date/Type/Reason Admit Date/Time Feb 04, 2019 at 12:44 Initial Consult Date Type of Consult Cardiology Date/Time of Note DATE: 02/05/19 TIME: 13:52 24 HR Interval Summary Free Text/Dictation Feeling much better, denies any further chest pain. Denies headache or shortnes s of breath Exam/Review of Systems Vital Signs Vitals Vital Signs Date Temp Pulse Resp B/P (MAP) Pulse Ox O2 O2 Flow FiO2 Time Delivery Rate 02/05/19 53 12:01 02/05/19 98.1 20 123/59 97 Room Air 11:23 (80) 02/04/19 2.0 18:50 Intake and Output 02/04/19 02/04/19 02/05/19 1515:00 23:00 07:00 IntakeIntake Total 120 ml 220 ml BalanceBalance 120 ml 220 ml Exam Constitutional: alert, oriented (No apparent distress) Head: normocephalic Respiratory: other (Coarse breath sounds bilaterally, no wheezing) Cardiovascular: regular rate and rhythm (S1-S2 heard) Gastrointestinal: soft, non-tender, bowel sounds Extremities: other (No significant edema) Labs Result Diagram: 02/05/1962302/05/1924 Results 24hrs Laboratory Tests Test 02/04/19 17:08 02/04/19 20:21 02/04/19 23:42 02/05/19 06:24 Lactate 660 H Dehydrogenase Creatine Kinase 46 44 Creatine Kinase 1.3 1.4 Index Creatinine Kinase MB 0.59 0.60 (Mass) Troponin I < 0.012 0.013 Bedside Glucose 196 White Blood Count 3.5 #L Red Blood Count 3.42 L Hemoglobin 10.1 L Hematocrit 31.5 L Mean Corpuscular 92.1 Volume Mean Corpuscular 29.5 Hemoglobin Mean Corpuscular 32.1 Hemoglobin Concent Red Cell 13.6 Distribution Width Platelet Count 195 Mean Platelet Volume 9.9 Immature 0.000 L Granulocytes % Neutrophils % 61.5 Lymphocytes % 21.2 Monocytes % 13.3 H Eosinophils % 3.4 Basophils % 0.6 Nucleated Red Blood 0.0 Cells % Immature 0.000 Granulocytes # Neutrophils # 2.2 Lymphocytes # 0.8 Monocytes # 0.5 Eosinophils # 0.1 Basophils # 0.0 Nucleated Red Blood 0.0 Cells # Sodium Level 142 Potassium Level 4.1 Chloride Level 102 Carbon Dioxide Level 30 Anion Gap 10 Blood Urea Nitrogen 20 Creatinine 0.77 Est Glomerular Filtrat Rate mL/min Glucose Level 85 Hemoglobin A1c 5.9 Calcium Level 9.4 Magnesium Level 1.8 Test 02/05/19 07:42 02/05/19 11:35 Bedside Glucose 97 164 Medications Medications Current Medications Ranolazine (Ranexa) 500 mg DAILY PO Last administered on 02/05/19 08:07; Admin Dose 500 MG; Start 02/04/19 at 18:30 Lorazepam (Ativan) 0.5 mg Q8H PRN PO .ANXIETY Last administered on 02/05/19 08:09; Admin Dose 0.5 MG; Start 02/04/19 at 18:30 Ondansetron HCl (Zofran Inj) 4 mg Q6H PRN IV NAUSEA/VOMITING; Start 02/04/19 at 18:30 Nitroglycerin (Nitroglycerin (Sl Tab) 0.4 Mg) 1 tab Q5M PRN SL .CHEST PAIN; Start 02/04/19 at 18:30 Acetaminophen (Tylenol Tab) 650 mg Q6H PRN PO .PAIN 1-3 OR TEMP Last administered on 02/05/19 04:14; Admin Dose 650 MG; Start 02/04/19 at 18:30 Heparin Sodium (Porcine) (Heparin (5000 Units/1ml)) 5,000 unit Q12 SC Last administered on 02/05/19 08:24; Admin Dose 5,000 UNIT; Start 02/04/19 at 21:00 Atorvastatin Calcium (Lipitor) 20 mg QHS PO Last administered on 02/04/19at 21:36; Admin Dose 20 MG; Start 02/04/19 at 21:00 Bisoprolol Fumarate (Zebeta) 5 mg BID PO Last administered on 02/05/19 10:26; Admin Dose 5 MG; Start 02/04/19 at 21:00 Clopidogrel Bisulfate (plaVIX) 75 mg DAILY PO Last administered on 02/05/19 08:06; Admin Dose 75 MG; Start 02/05/19 at 09:00 Diltiazem HCl (Cardizem Cd) 240 mg DAILY PO Last administered on 02/05/19 08:08; Admin Dose 240 MG; Start 02/05/19 at 09:00 Docusate Sodium (Colace) 100 mg BID PO Last administered on 02/05/19 08:07; Admin Dose 100 MG; Start 02/04/19 at 21:00 Hydralazine HCl (Apresoline) 100 mg Q8 PO Last administered on 02/05/19 04:13; Admin Dose 100 MG; Start 02/04/19 at 22:00 Levothyroxine Sodium (Synthroid) 75 mcg BEFORE BREAKFAST PO Last administered on 02/05/19 06:13; Admin Dose 75 MCG; Start 02/05/19 at 07:00 Lisinopril (Zestril) 40 mg DAILY PO Last administered on 02/05/19 08:09; Admin Dose 40 MG; Start 02/05/19 at 09:00 Trazodone HCl (Desyrel) 50 mg QHS PO Last administered on 02/04/19 21:38; Admin Dose 50 MG; Start 02/04/19 at 21:00 Cholecalciferol (Vitamin D) 2,000 unit DAILY PO Last administered on 02/05/19 08:07; Admin Dose 2,000 UNIT; Start 02/05/19 at 09:00 Pantoprazole (Protonix Tab) 40 mg DAILY@06 PO Last administered on 02/05/19 06:13; Admin Dose 40 MG; Start 02/05/19 at 06:00 Insulin Glargine (Lantus) 11 units DAILY@2000 SC Last administered on 02/04/19 20:24; Admin Dose 11 UNITS; Start 02/04/19 at 20:00 Insulin Aspart (Novolog Insulin Pen) 4 unit WITH MEALS SC Last administered on 02/05/19 11:43; Admin Dose 4 UNIT; Start 02/05/19 at 07:55 Insulin Aspart (Novolog Insulin Pen) NOVOLOG *MILD* ALGORITHM WITH MEALS BEDTIME SC Last administered on 02/05/19at 11:44; Admin Dose 1 UNIT; Start at 21:00 Sachin Rosario DO Feb 05, 2019 13:54
[2019-02-05] MEDS: ATORVASTATIN 20 MG TAB PO SCH (20:38)
[2019-02-05] MEDS: traZODone 50 MG TAB PO SCH (20:38)
[2019-02-05] MEDS: INSULIN GLARGINE [LANTus] (100 UNITS/ML) SYG SC SCH (20:45)
[2019-02-06] VITALS (8 sets, daily range): BP systolic 137–164; BP diastolic 65–73; PULSE 52–60; RESP 18–20
[2019-02-06] MEDS: PANTOPRAZOLE (EC) 40 MG TAB PO SCH (06:09)
[2019-02-06] MEDS: LEVOTHYROXINE 75 MCG TAB PO SCH (06:09)
[2019-02-06] MEDS: INSULIN ASPART [NOVOLOG] 3 ML PEN SC SCH ×4 (07:55→12:14)
[2019-02-06] MEDS: CHOLECALCIFEROL 2,000 UNIT CAP PO SCH (08:14)
[2019-02-06] MEDS: RANOLAZINE (SR) 500 MG TAB PO SCH (08:14)
[2019-02-06] MEDS: DOCUSATE SODIUM 100 MG CAP PO SCH (08:14)
[2019-02-06] MEDS: CLOPIDOGREL 75 MG TAB PO SCH (08:15)
[2019-02-06] MEDS: BISOPROLOL 5 MG TAB PO SCH (08:16)
[2019-02-06] MEDS: HEPARIN 5,000 UNIT/1 ML VIAL SC SCH (08:21)
[2019-02-06] MEDS ORDERED: LISINOPRIL 20 MG TAB PO SCH (09:00)
--- NOTE | 2019-02-06 10:17 | EN ---
Date/Time of Note Date/Time of Note DATE: 02/05/19 TIME: 10:17 Event Note Medicine Medicine Event Note Progress note S: no more chest pain, feels well, but wants to make sure CP doesn;t recurr prior to d/c Vital Signs Date Temp Pulse Resp B/P (MAP) Pulse Ox O2 O2 Flow FiO2 Time Delivery Rate 02/05/19 53 12:01 02/05/19 98.1 20 123/59 97 Room Air 11:23 (80) 02/04/19 2.0 18:50 Intake and Output 02/04/19 02/04/19 02/05/19 1515:00 23:00 07:00 IntakeIntake Total 120 ml 220 ml BalanceBalance 120 ml 220 ml Constitutional: alert, oriented Head: atraumatic, normocephalic Neck: non-tender, supple Respiratory: clear to auscultation Cardiovascular: regular rate and rhythm Gastrointestinal: S/ NT / ND / +BS Extremities: no edema, good radial pulses assessment and plan: yo F with known CAD here with intermittent CP -ACS has been ruled out -patient has been resumed on home ranexa -await cardio final recs, if no further intervention, plan for d/c -mean while continue current supportive care ANGELES HUI Feb 06, 2019 10:17
[2019-02-06] MEDS ORDERED: LISI-471 PO (10:20)
== END 2019-02-06 14:51 | disposition home or self-care (01) ==
LOC: E/R 10:27 → TEL 12:44
PROVIDERS: ADMIT Family Medicine; ATTEND Family Medicine
DX: R07.9 Chest pain, unspecified (principal); I25.10 Atherosclerotic heart disease of native coronary artery without angina pectoris; I10 Essential (primary) hypertension; E11.9 Type 2 diabetes mellitus without complications; E78.5 Hyperlipidemia, unspecified; E03.9 Hypothyroidism, unspecified; K57.30 Diverticulosis of large intestine without perforation or abscess without bleeding
CPT/HCPCS: 71045; 80048; 82550; 82553; 82962; 83036; 83615; 83735; 84484; 85025; 93005; 93306; 99285; G0378; J1644; J1815; 99217

== ENCOUNTER 2019-02-12 17:27 | Emergency (ER) | payer MEDICARE, OTHER ==
[~2019-02-12] VITALS: Ht 157.5 cm; Wt 51.3 kg
[~2019-02-12 17:27] MED LIST changes: -BENA40TA56 PO; +CHOL200056 PO; -CHOL500010 PO; -CLON-379 PO; +CLON1PAT2 TD; +CLOP75TA19 PO; -CLOP75TA27 PO; -DILT120C65 PO; +DOCU-144 PO; -DOCU-159 PO; -HYDR-3672 PO; +HYDR100T25 PO; -LEVO5TAB PO; +LISI-471 PO; -NITR0.4T32 SL; +OMEP40CA6 PO; -RANI150T5 PO; +RANO500T2 PO; +SIME125T PO; -SIME80TA60 PO; -TML25OP5 BOTH EYES; +TRAZ-111 PO
[2019-02-12 18:09] VITALS: Ht 157.5 cm; Wt 51.3 kg
[2019-02-12] MEDS ORDERED: LORAZEPAM 0.5 MG TAB PO ONE (19:00)
--- NOTE | 2019-02-12 19:02 | ERD ---
ER Documentation Chief Complaint Chief Complaint SENT BY PCP HTN, CP TO LEFT ARM, NUMBNESS, WEAKNESS HPI This is an 83-year-old female with a past menstrual history of coronary artery disease status post stent placed in 1990 on 75 mg of Plavix on a daily basis. The patient has been having difficulty controlling her blood pressure. She was admitted to [facility] February 04, 2019 roughly 3 weeks ago. She went to [facility] on February 07 and for the same complaint of chest pain and elevated blood pressure. The patient had a significant cardiac workup and was subsequently discharged home after her blood pressure was better controlled and instructed to follow-up with her primary care physician. The patient returned to the emergency department at [facility] 2 days ago for the same complaint of elevated blood pressure. This resolved in the emergency department she was subsequently discharged. She indicated today she followed up with her primary care physician Dr. Partida. She had recurrent blood pressures that were significantly elevated in his office. At 1632 her blood pressure was 218/86. Heart rate was 72. At 1606 her blood pressure was 222/94. At 1545 her blood pressure was 223/87. She did not receive any anti-hypertensive medication while in her primary care physician's office was instructed to come to the emergency department for further evaluation. The patient contrary to the triage note is not complaining of chest pain or pressure at this time. She states there is no numbness or weakness but as this was a miscommunication as she indicated that was the symptoms she felt on February 04 when she had been evaluated to [facility] at that time for cardiac workup. Dr. Earle Bynum is her rewriter. The patient states right now she is feeling palpitations and anxiousness and is concerned of why her blood pressure continues to be elevated. She is been compliant with all her medications which also includes clonidine patches as needed and she also indicates she was recently placed on antidepressants. The patient lives alone. She has children that live in [place] in [place]. She indicates she is financially been having difficulties which is created a significant amount of stress but she denies any suicidal homicidal thoughts or ideation ROS All systems reviewed and are negative except as per history of present illness. Medications Home Meds Active Scripts Lisinopril* (Lisinopril*) 20 Mg Tablet, 20 MG PO BID, #60 TAB 2 Refills Prov:ANGELES HUI 02/06/19 Reported Medications Glimepiride* (Glimepiride*) 1 Mg Tablet, 1 MG PO WITH BREAKFAST, TAB 02/04/19 Trazodone Hcl* (Trazodone Hcl*) 50 Mg Tablet, 50 MG PO QHS, #30 TAB 02/04/19 Omeprazole* (Omeprazole*) 40 Mg Capsule.dr, 40 MG PO DAILY, #30 CAP 02/04/19 Ranolazine* (Ranexa*) 500 Mg Tab.sr.12h, 500 MG PO DAILY, TAB 02/04/19 Simethicone (Gas Relief) 125 Mg Tab.chew, 250 MG PO AFTER MEALS, TAB.CHEW 02/04/19 Cholecalciferol (Vitamin D3) (Vitamin D-3) 2,000 Unit Tablet, 2000 UNIT PO DAILY, TAB 02/04/19 Atorvastatin Calcium* (Atorvastatin Calcium*) 20 Mg Tablet, 20 MG PO QHS, #30 TAB 02/04/19 Docusate Sodium* (Colace*) 100 Mg Capsule, 100 MG PO BID, #60 CAP 02/04/19 Clonidine Patch (CLONIDINE PATCH) Unknown Strength Patch, 1 PATCH TD Q7D, #4 PATCH.WK 0.1MG/24HR 02/04/19 Hydralazine Hcl* (Hydralazine Hcl*) 100 Mg Tablet, 100 MG PO Q8, #90 TAB 02/04/19 Bisoprolol Fumarate* (Bisoprolol Fumarate*) 5 Mg Tablet, 5 MG PO BID, TAB 02/04/19 Levothyroxine Sodium* (Levothyroxine Sodium*) 75 Mcg Tablet, 75 MCG PO BEFORE BREAKFAST, #30 TAB 02/04/19 Clopidogrel Bisulfate* (Clopidogrel Bisulfate*) 75 Mg Tablet, 75 MG PO DAILY, #30 TAB 02/04/19 Discontinued Reported Medications Clotrimazole* (Clotrimazole* AF) 1% - 30 Gm Cream.gm., 1 APPLIC TOP BID, TUB 02/04/19 Miconazole Nitrate (Miconazole 7) 100 Mg Supp.vag, 100 MG VG QHS, SUPP.VAG 02/04/19 Lisinopril* (Lisinopril*) 40 Mg Tablet, 40 MG PO DAILY, #30 TAB 02/04/19 Miconazole Nitrate* (Miconazole*) 2% - 45 Gm Cr, 1 APPFUL VAGINAL HS, #1 TUB 02/04/19 Diltiazem Hcl* (Cardizem CD*) 240 Mg Cap.sr.24h, 240 MG PO DAILY, #30 CAP 02/04/19 Allergies Allergies: Coded Allergies: Penicillins (Verified Allergy, Severe, RASH, 02/04/19) celecoxib (Verified Allergy, Severe, RASH, 02/04/19) azithromycin (Verified Allergy, Unknown, 02/04/19) (ZITHROMICIN) benzalkonium chloride (Unverified Allergy, Unknown, 02/04/19) travoprost (Unverified Allergy, Unknown, 02/04/19) PMhx/Soc History of Surgery: Yes (Hysterectomt, C/S, ovaries removed, Back Sx) Anesthesia Reaction: No Hx Neurological Disorder: No Hx Respiratory Disorders: No Hx Cardiac Disorders: Yes (HTN, [place] 1990, Hyperlipidemia,CardiacStents) Hx Psychiatric Problems: No Hx Miscellaneous Medical Probl: Yes (Arthritis,Insomnia) Hx Alcohol Use: No Hx Substance Use: No Hx Tobacco Use: No Physical Exam Vitals Vital Signs Date Temp Pulse Resp B/P (MAP) Pulse Ox O2 O2 Flow FiO2 Time Delivery Rate 02/12/19 98.6 80 16 227/96 98 18:09 (139) Physical Exam Constitutional:Well-developed. Well-nourished. Patient tearful HEENT:Normocephalic. Atraumatic.Pupils were equal round reactive to light. Moist mucous membranes.No tonsillar exudates. Funduscopy exam shows sharp optic disks and venous pulsations are present Neck: No nuchal rigidity. No lymphadenopathy. No posterior cervical spine tenderness or step-offs. Respiratory: Not using accessory muscles of respiration.Lungs were clear to auscultation bilaterally. No rhonchi. No rales. No wheezing. Cardiovascular: Regular rate regular rhythm.No murmurs. No rubs were appreciated.S1, S2 normal. Distal pulses are palpable 2+ bilaterally. GI: Abdomen was soft. Nontender. Non Distended. No pulsatile abdominal masses or bruits. No rebound. No guarding. Bowel sounds were present and normal. Muscle skeletal: Full range of motion of both the upper and lower extremities bilaterally.Normal muscle tone.No assymetrical calf tenderness or swelling. Skin: No petechia, no purpura. No lesions on the palms or the soles of the feet. No maculopapular rash. NEURO: Patient was alert, awake, orientated x3.No facial droop. Gait observed and normal with no ataxia.Speech had regular rate and rhythm. No focal neurological deficits. Results 24 hrs Current Medications Medications Dose Sig/Marlin Start Time Status Last (Trade) Ordered Route PRN Stop Time Admin Dose Reason Admin Lorazepam 0.5 mg ONCE ONCE 02/12/19 (Ativan) PO 19:00 02/12/19 19:01 Procedures/MDM This patient presented to the emergency department with severely elevated blood pressure. My differential diagnosis included but was not limited to conditions that could end-organ damage such as acute coronary syndrome, acute pulmonary edema, aortic dissection, subarachnoid hemorrhage, intracerebral hemorrhage, cerebral infarction, withdrawal syndromes from beta blockers, or states of catecholamine excess such as pheochromocytoma or drug intoxication. Ancillary lab work was obtained. There was no elevation in the BUN and cr eatinine to suggest acute renal failure. Electrolytes were normal. Cardiac enzyme was normal and the 12 lead EKG showed no acute ischemic changes or left ventricular hypertrophy. 12 Lead EKG tracing ordered and reviewed by myself showed: Normal sinus rhythm of 79 bpm and no arrhythmia. UT interval normal. Left ventricular hypertrophy QRS duration normal. No ST segment elevation No ST segment depression. No changes consistent with acute ischemia. Given that the patient had an absence of cerebral, ocular, cardiac or renal damage the hypertensive urgency was treated with oral agents in the emergency room with improvement of the patient's blood pressure. The patient likely appeared to be complaint with primary care physician and will follow up with their PCP in the next 24-48 hours. The patient was also given p.o. Ativan in the emergency department as she did appear very anxious. I spent a significant amount of time with the patient and did feel that an acute stress reaction was exacerbating her elevated blood pressure as the patient this time had no signs of focal neurological deficits or cardiac ischemia. They were instructed to return to the emergency department at anytime if there is any worsening of their condition such as development of chest pain or a headache. They were instructed to resume previous medication regimen or initiate a suitable medication regimen under care of the PCP to enable proper monitoring for drug reactions. The patient was also informed on the adverse side effects and adverse drug interactions of the medications prescribed to them by myself. The patient gave informed consent to the prescription of the new medication. Departure Diagnosis: Primary Impression: Hypertensive urgency Additional Impressions: Anxiety Anxiety reaction Condition: YING Capps MD Feb 12, 2019 19:02
[2019-02-12] MEDS ORDERED: NICARDipine HCL 30 MG CAPSULE PO ONE (19:30)
[2019-02-12] MEDS ORDERED: LABETALOL HCL 20MG INJ IV ONE (20:00)
[2019-02-12] MEDS ORDERED: NITR0.4T32 SL (21:22)
[2019-02-12] MEDS ORDERED: CLON-379 PO (21:22)
[2019-02-12] MEDS ORDERED: [UNRECOGNIZED DRUG - CODE] VAG (21:22)
[2019-02-12 21:57] VITALS: BP 138/61; PULSE 66; RESP 16
== END 2019-02-12 22:17 | disposition home or self-care (01) ==
LOC: E/R 17:27
DX: I16.0 Hypertensive urgency (principal); F41.1 Generalized anxiety disorder; I25.10 Atherosclerotic heart disease of native coronary artery without angina pectoris; I10 Essential (primary) hypertension; I25.2 Old myocardial infarction; Z79.01 Long term (current) use of anticoagulants; Z98.61 Coronary angioplasty status
CPT/HCPCS: 80053; 82550; 82553; 83880; 84484; 85025; 85610; 85730; 99283